=== PATIENT | male | born 1965 | race Two or more races ===

== ENCOUNTER 2018-03-10 12:32 | Emergency (ER) | payer SELFPAY ==
[~2018-03-10] VITALS: Ht 172.7 cm; Wt 72.6 kg
[2018-03-10 12:49] VITALS: BP 132/84
[2018-03-10] MEDS ORDERED: Ketorolac 30mg Inj IM ONE (13:00)
[2018-03-10] MEDS ORDERED: IBUPROFEN600 MG ORAL (13:52)
[2018-03-10] MEDS ORDERED: NORCO 5-325 TA1 EACH ORAL (13:52)
[2018-03-10 14:10] VITALS: BP 130/85
--- NOTE | 2018-03-10 17:02 | Diagnostic Imaging Report ---
Indication: Pain, trauma Technique: 4 views of the right ribs Comparison: none Findings: There are minimally displaced fractures of the right seventh and eighth and more questionably the sixth ribs. No associated pneumothorax. Impression: Positive for right seventh and eighth and possibly sixth rib fractures
== END 2018-03-10 14:10 | disposition home or self-care (01) ==
LOC: EMR 13:46
DX: S22.41XA Multiple fractures of ribs, right side, initial encounter for closed fracture (principal); W18.2XXA Fall in (into) shower or empty bathtub, initial encounter; Y92.002 Bathroom of unspecified non-institutional (private) residence as the place of occurrence of the external cause
CPT/HCPCS: 71100; 96372; 99283; J1885

== ENCOUNTER 2018-03-18 16:58 | Emergency (ER) | payer SELFPAY ==
[~2018-03-18] VITALS: Ht 172.7 cm; Wt 72.6 kg
[~2018-03-18 16:58] MED LIST: IBUPROFEN600 MG ORAL; NORCO 5-325 TA1 EACH ORAL
[2018-03-18 17:31] VITALS: BP 134/90
--- NOTE | 2018-03-18 18:43 | Emergency Room Report ---
History of Present Illness General Chief Complaint: Abdominal Pain Source: Patient Present Illness HPI 53-year-old male patient presents ER complaining of intermittent right-sided abdominal pain for the past week. Patient was seen in ER 2 weeks ago for rib fracture, states that he has been taking Vicodin for relief of pain symptoms intermittently however still having pain symptoms. Reports constipation during this time. Reports last bowel movement today. Reports that he is been able to pass gas, last time pes cavus morning. Denies vomiting or heartburn. Denies radiation of pain symptoms. Describes pain as crampy and intermittent. Denies dysuria, hematuria. Denies back pain. Denies chest pain, shortness breath, other acute symptoms. States symptoms did not begin after eating. Allergies: Coded Allergies: No Known Allergies (Unverified , 03/10/18) Patient History Past Medical History: see triage record Reviewed Nursing Documentation: PMH: Agreed; PSxH: Agreed Nursing Documentation-PMH Past Medical History: No Stated History Review of Systems All Other Systems: negative except mentioned in HPI Physical Exam Vital Signs Date Time Temp Pulse Resp B/P (MAP) Pulse Ox O2 Delivery O2 Flow Rate FiO2 03/18/18 17:18 98.0 83 16 134/90 95 Room Air 98.1 Sp02 EP Interpretation: reviewed, normal General Appearance: well appearing, no apparent distress, alert, GCS 15, non- toxic Head: normocephalic, atraumatic Eyes: bilateral eye normal inspection, bilateral eye PERRL ENT: hearing grossly normal, normal pharynx, no angioedema, normal voice, uvula midline, moist mucus membranes Neck: full range of motion Respiratory: lungs clear, normal breath sounds, no rhonchi, no respiratory distress, no accessory muscle use, no wheezing, speaking full sentences, other - right-sided chest tenderness over ribs, no flail chest, no bony deformity Cardiovascular #1: regular rate, rhythm, no edema Gastrointestinal: normal bowel sounds, soft, no mass, non-distended, no guarding, no rebound, tenderness - epigatstric, other - no tenderness to palpation at McBurney's point, negative Shukla sign, negative obturator, negative heel strike Musculoskeletal: back normal, digits/nails normal, gait/station normal, normal range of motion, non-tender Neurologic: alert, oriented x3, responsive, motor strength/tone normal, sensory intact Psychiatric: mood/affect normal Skin: no rash Lymphatic: no adenopathy Medical Decision Making PA Attestation Dr. Gonzalez is my supervising Physician whom patient management has been discussed with. Diagnostic Impression: Primary Impression: Constipation ER Course Pt. presents to the ED c/o abdominal pain and vomiting. Ddx considered but are not limited to UTI, cholelithiasis, cholecystitis, pancreatitis, appendicitis, diverticulitis, nephrolithiasis, gas, GERD, constipation. Negative Shukla sign, no jaundice or fever, no vomiting, low suspicion for cholecystitis or cholelithiasis lithiasis, does not require ultrasound imaging at this time. negative Rovsing, negative obturator, low solution for appendicitis. No flank pain, no dysuria, hematuria, no vomiting, low suspicion for nephrolithiasis at this time, dose not require UA at this time. Patient does not have other acute complaints, passing gas, no diarrhea, no vomiting, afebrile, nontoxic appearing, does not require labs at this time. Due to severity of patient's pain complaints and patient stating pain was "so bad 2 days ago I thought I was gonna ", will order CT abdomen and pelvis to rule out underlying pathology. Provided patient with pain medication. Vital signs: are WNL, pt. is afebrile ORDERS: CT abdomen pelvis ER COURSE: CT abdomen and pelvis no acute abnormality Discuss results with the patient. Provided patient with copy of results. Instructed patient to followup with PCP and discuss results of report with patient, discuss need for further treatment and referral. Pain symptoms may be result of referred pain from rib fractures or constipation symptoms. Continue take gas medication. Patient reports relief of pain symptoms with medication. drink plenty of fluids, fiber diet. Follow-up with primary care provider to discuss referral to GI as needed. DISCHARGE: Rx provide for Colace At this time pt. is stable for d/c to home. Patient resting comfortably, in no acute distress, nontoxic appearing, talking without difficulty. Rx provided to patient. Patient to take medications as instructed Will provide with patient care instructions and any necessary prescriptions. Care plan and follow-up instructions provided. Patient instructed to follow-up with primary care provider in 3 - 5 days. Patient questions asked and answered. Patient reports understanding and agreement to treatment plan. ER precautions given. Patient instructed to return to ER immediately for any new or worsening of symptoms including but not limited to increasing SOB, persistent fever, worsening of pain symptoms, intractable vomiting, blood in stool, urine, and/or emesis. - Please note that this Emergency Department Report was dictated using [employer] export coordinator technology software, occasionally this can lead to erroneous entry secondary to interpretation by the dictation equipment. CT/MRI/US Diagnostic Results CT/MRI/US Diagnostic Results : Imaging Test Ordered: CT abdomen and pelvis Impression no acute abnormality demonstrated in the abdomen or pelvis Last Vital Signs Date Time Temp Pulse Resp B/P (MAP) Pulse Ox O2 Delivery O2 Flow Rate FiO2 03/18/18 17:31 98.1 79 16 134/90 95 Room Air 98.1 Disposition: HOME, SELF-CARE Condition: Stable Scripts Docusate Sodium* (COLACE*) 100 Mg Capsule 100 MG ORAL THREE TIMES A DAY, #30 CAP Prov: Hilario Magana 03/18/18 Referrals: NOT CHOSEN IPA/MD,REFERRING (PCP) Patient Instructions: Abdominal Pain, Adult, Constipation, Adult, [id number] , Intestinal Gas and Gas Pains, Pediatric Additional Instructions: Followup with primary care provider in 3 -5 days. Discuss GI referral as needed. Drink plenty of fluid. High fiber diet. Continue to take gas medication. Rest, ice and heat for relief pain. Take medications as directed. Patient questions asked and answered. ER precautions given, patient instructed to return to ER immediately for any new or worsening of symptoms. Hilario Magana Mar 18, 2018 18:43
[2018-03-18] MEDS ORDERED: COLACE100 MG ORAL (19:13)
[2018-03-18 19:19] VITALS: BP 120/82
[2018-03-18 19:22] VITALS: BP 120/82
--- NOTE | 2018-03-19 08:50 | Diagnostic Imaging Report ---
Indication: Right flank pain x1 week Technique: Spiral acquisitions obtained through the abdomen and pelvis. No oral or IV contrast utilized, per urinary stone protocol. Multiplanar reconstructions were generated. Total dose length product 632.51 mGycm. CTDIvol(s) 13.01 mGy. Dose reduction achieved using automated exposure control Comparison: none Findings: No renal or ureteral calculi, hydronephrosis, hydroureter demonstrated. Lack of IV contrast limits assessment of the renal parenchyma; no gross renal parenchymal mass or cyst demonstrated. The lack of IV contrast limits assessment of the other solid organs. The liver, gallbladder, bile ducts, pancreas, spleen, adrenals are all unremarkable. No retroperitoneal or mesenteric mass or adenopathy. No pelvic mass or adenopathy. Unremarkable bladder. Lack of enteric contrast limits assessment of the GI tract. The appendix is not definitely visualized, but no findings to suggest acute appendicitis are evident. No evidence of diverticulosis or diverticulitis. No small bowel distention. No free or loculated intraperitoneal air or fluid is evident. There is a tiny fat-containing umbilical hernia. There is a small fat-containing Bochdalek hernia on the right. The bones demonstrate acute fractures of the right lateral seventh and eighth ribs, and of the posterior 10th rib. There are mild degenerative spondylosis changes. The included lung bases demonstrate some atelectasis or scarring bilaterally.. Impression: Positive for acute right seventh and eighth rib fractures, also demonstrated on recent rib radiographs lateral. Also positive for acute right 10th rib fracture, occult on previous rib radiographs, in retrospect. This was not described on the [facility] preliminary report. However, review of electronic medical record indicates the ED physician was already aware of this from the previous visit and previous radiographs. Discrepancy report was sent to the [facility] at the time of interpretation. No other acute or significant abnormality The CT scanner at [facility] is accredited by the [employer] and the scans are performed using protocols designed to limit radiation exposure to as low as reasonably achievable to attain images of sufficient resolution adequate for diagnostic evaluation.
== END 2018-03-18 19:22 | disposition home or self-care (01) ==
LOC: EMR 18:10
DX: K59.00 Constipation, unspecified (principal); K42.9 Umbilical hernia without obstruction or gangrene
CPT/HCPCS: 74176; 99284